=== PATIENT | male | born 1985 | race American Indian/Alaskan Native ===

== ENCOUNTER 2017-01-18 18:13 | Emergency (ER) | payer OTHER ==
[2017-01-18 18:24] VITALS: BP 124/84
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
[2017-01-19] MEDS: TORADOL IM ONE (00:37)
== END 2017-01-19 00:54 | disposition home or self-care (01) ==
LOC: ED 18:13
DX: M54.5 Low back pain (principal); V49.49XA Driver injured in collision with other motor vehicles in traffic accident, initial encounter; Y93.9 Activity, unspecified; Y92.9 Unspecified place or not applicable; Y99.9 Unspecified external cause status
CPT/HCPCS: 96372; 99282; J1885

== ENCOUNTER 2018-04-02 11:34 | Emergency (ER) | payer SELFPAY ==
[2018-04-02 11:48] VITALS: BP 130/84
[2018-04-02 14:01] LABS: Bilirubin,Urine NEG (Negative); Blood,Urine NEG (Negative); Color,Urine Yellow (Yellow); Protein,Urine <15 mg/dL mg/dL (Negative); Urobilinogen,Urine < 2.0 mg/dL (<2.0); WBC,Urine < 1.0 /HPF (0.0-6.0)
--- NOTE | 2018-04-02 15:04 | XRay Report ---
FINAL REPORT PROCEDURE: XR ABDOMEN 1V AP TECHNIQUE: Two AP views of the abdomen were obtained. HISTORY: constipation COMPARISON: No prior studies are available for comparison. FINDINGS: Nonspecific stool pattern visualized with stool scattered throughout the colon. There is no evidence of bowel obstruction. No abnormal masses are seen. Calcifications are seen in the lower pelvis which appear to represent phleboliths. IMPRESSION: No acute abnormalities are identified.
--- NOTE | 2018-04-02 15:10 | Emergency Department Report ---
ED Abdominal Pain HPI - General Chief Complaint: Abdominal Pain Stated Complaint: STOMACH PAIN Time Seen by Provider: 04/02/18 12:55 Source: patient Mode of arrival: Ambulatory Limitations: No Limitations - History of Present Illness Initial Comments: 32-year-old male with constipation 3 weeks. Patient states he initially had abdominal pain which is now resolved. Patient reported she has been taking laxatives and stool softeners, drinking lots of water. Patient states this seems to have helped. Report had a bowel movement today which was normal. However patient concerned about the fact that if he does not use medications he will have a normal bowel movement. Denies fever, nausea, vomiting. MD Complaint: other (constipation) -: week(s) (3) Location: diffuse Radiation: none Migration to: no migration Severity: moderate Consistency: now resolved Improves With: medication Worsens With: nothing Associated Symptoms: denies: nausea, vomiting, fever - Related Data Previous Rx's Medication Instructions Recorded Last Taken Type Acetaminophen/Codeine [Tylenol #3] 1 tab PO Q6H PRN #20 tab 07/27/15 Unknown Rx Cyclobenzaprine [Flexeril 10 MG 10 mg PO TID PRN #12 tablet 01/19/17 Unknown Rx TAB] Ibuprofen [Motrin 800 MG tab] 800 mg PO Q8HR PRN #20 tablet 01/19/17 Unknown Rx Docusate Sodium [Colace] 100 mg PO BID PRN #30 capsule 04/02/18 Unknown Rx Sodium Phosphate,[place]-Dibasic 133 ml RC ONCE PRN #1 enema 04/02/18 Unknown Rx [Fleet Enema] Allergies Allergy/AdvReac Type Severity Reaction Status Date / Time naproxen AdvReac Rash Verified 07/27/15 18:43 ED Review of Systems ROS: Stated complaint: STOMACH PAIN Other details as noted in HPI Comment: All other systems reviewed and negative Constitutional: denies: chills, fever Gastrointestinal: abdominal pain, constipation. denies: nausea, vomiting, diarrhea ED Past Medical Hx - Past Medical History Previous Medical History?: No - Surgical History Past Surgical History?: Yes Additional Surgical History: left knee 2013 - Social History Smoking Status: Never Smoker Substance Use Type: None - Medications Home Medications: Home Medications Medication Instructions Recorded Confirmed Last Taken Type Acetaminophen/Codeine [Tylenol #3] 1 tab PO Q6H PRN #20 tab 07/27/15 Unknown Rx Cyclobenzaprine [Flexeril 10 MG 10 mg PO TID PRN #12 tablet 01/19/17 Unknown Rx TAB] Ibuprofen [Motrin 800 MG tab] 800 mg PO Q8HR PRN #20 tablet 01/19/17 Unknown Rx Docusate Sodium [Colace] 100 mg PO BID PRN #30 capsule 04/02/18 Unknown Rx Sodium Phosphate,[place]-Dibasic 133 ml RC ONCE PRN #1 enema 04/02/18 Unknown Rx [Fleet Enema] ED Physical Exam - General Limitations: No Limitations General appearance: alert, in no apparent distress - Head Head exam: Present: atraumatic, normocephalic - Eye Eye exam: Present: normal appearance - ENT ENT exam: Present: mucous membranes moist - Neck Neck exam: Present: normal inspection - Respiratory Respiratory exam: Present: normal lung sounds bilaterally. Absent: respiratory distress - Cardiovascular Cardiovascular Exam: Present: regular rate, normal rhythm - GI/Abdominal GI/Abdominal exam: Present: soft, normal bowel sounds. Absent: distended, tenderness - Extremities Exam Extremities exam: Present: normal inspection - Back Exam Back exam: Present: normal inspection - Neurological Exam Neurological exam: Present: alert, oriented X3 - Psychiatric Psychiatric exam: Present: normal affect, normal mood - Skin Skin exam: Present: warm, dry, intact, normal color. Absent: rash ED Course Vital Signs 04/02/18 11:44 Temperature 98.6 F Pulse Rate 68 Respiratory 16 Rate Blood Pressure 130/84 O2 Sat by Pulse 99 Oximetry ED Medical Decision Making - Radiology Data Radiology results: report reviewed - Differential Diagnosis bowel obstruction, constipation, IBS Critical care attestation.: If time is entered above; I have spent that time in minutes in the direct care of this critically ill patient, excluding procedure time. ED Disposition Clinical Impression: Constipation Disposition: [id number] TO HOME OR SELFCARE Is pt being admited?: No Condition: Stable Instructions: Constipation (ED), High Fiber Diet (ED) Prescriptions: Docusate Sodium [Colace] 100 mg PO BID PRN #30 capsule PRN Reason: Constipation Sodium Phosphate,[place]-Dibasic [Fleet Enema] 133 ml RC ONCE PRN #1 enema PRN Reason: Constipation Referrals: [facility] [Provider Group] - 3-5 Days [facility] [Provider Group] - 3-5 Days Time of Disposition: 15:10
== END 2018-04-02 15:28 | disposition home or self-care (01) ==
LOC: ED 11:34
DX: K59.00 Constipation, unspecified (principal); Z88.6 Allergy status to analgesic agent
CPT/HCPCS: 74018; 81001; 99283